=== PATIENT | female | born 1965 | race Caucasian/White ===

== ENCOUNTER 2020-09-24 20:50 | Emergency (ER) | payer MEDICAID ==
[~2020-09-24] VITALS: Ht 172.7 cm; Wt 95.3 kg
[2020-09-24 21:03] VITALS: BP 157/91; Ht 172.7 cm; Wt 95.3 kg
== END 2020-09-25 00:30 | disposition left against medical advice (07) ==
LOC: ED 20:50
DX: R07.89 Other chest pain (principal); M79.602 Pain in left arm